=== PATIENT | male | born 1960 | race Caucasian/White ===

== ENCOUNTER 2025-07-28 12:05 | Emergency (ER) | payer OTHER ==
--- NOTE | 2025-07-28 13:17 | RAD REPORT ---
EXAMINATION: ONE VIEW CHEST XR CLINICAL INDICATION: Male, 65 years old.,CHEST PAIN TECHNIQUE: Frontal chest projection is submitted. Examination is limited by patient positioning and t echnique. COMPARISON: 01/06/2021 FINDINGS: The lungs are well inflated and clear. No pneumothorax or sizable effusion. The heart is normal in s ize. Mediastinal contours are unremarkable. IMPRESSION: No acute intrathoracic abnormalities.
--- NOTE | 2025-07-28 13:33 | RAD REPORT ---
EXAM: CT Head Brain Wo Cont HISTORY: DIZZINESS COMPARISON: None TECHNIQUE: Multiple contiguous axial images were obtained for a CT of the brain without contrast. Sag ittal and coronal reformats were performed. One or more of the following dose reduction techniques were used: Automated exposure control, adjus tment of the mA and kV according to patient size, and iterative reconstruction. Unless otherwise specified, incidental findings do not require dedicated imaging follow-up. FINDINGS: No evidence of hydrocephalus, intracranial hemorrhage, or extra-axial fluid collection. The brain is normal in morphology. The calvarium is intact. The visualized paranasal sinuses and mastoid air cells are essentially clear . IMPRESSION: No evidence of acute intracranial abnormality.
--- NOTE | 2025-07-28 13:36 | RAD REPORT ---
EXAMINATION: CTA HEAD CLINICAL INDICATION: Male, 65 years old. DIZZINESS TECHNIQUE: Axial CT images were obtained through the head after intravenous contrast utilizing angiog raphic protocol with 3D post-processing (maximum intensity projection images, volume rendered images and/or shaded surface rendered images). One or more of the following dose reduction technique s were used: Automated exposure control, adjustment of the mA and/or kV according to patient size, and/or iterative reconstruction. Unless otherwise specified, incidental findings do not require dedic ated imaging follow-up. COMPARISON: No prior exam. FINDINGS: ICA: The petrous, cavernous, and supraclinoid segments of the bilateral internal carotid arteries are normal. GREG: Anterior cerebral arteries are normal bilaterally. The anterior communicating artery is patent. MCA: Middle cerebral arteries are normal bilaterally. MICROWAVE TECHNICIAN: Posterior cerebral arteries are normal bilaterally. Vertebrobasilar: The vertebral arteries are patent. The basilar artery is normal in appearance. 3D images confirm these findings. IMPRESSION: No evidence of large vessel occlusion or hemodynamically significant stenosis.
[2025-07-28 13:39] LABS: Absolute Lymphocytes (CBC) 1.1 K/uL (0.7-4.9); Hematocrit 45.8 % (39.6-49.0); Hemoglobin 15.5 g/dL (13.6-17.9); MCH 29.8 pg (27.0-35.0); MCHC 33.8 g/dL (32.0-36.0); MCV 88.1 fL (80-100); MPV 10.4 fL (7.6-11.3); Nucleated RBC Absolute Count 0.0 (0-0); Nucleated Red Blood Cells % 0.1 % (0-0); RBC Red Blood Cell Count 5.20 M/uL (4.33-5.43); White Blood Count 14.60 thou/uL (4.3-10.9)
--- NOTE | 2025-07-28 13:40 | RAD REPORT ---
EXAMINATION: CT Neck Angio CLINICAL INDICATION: Male, 65 years old. [facility] MAIN PAIN Bed Name: [id number] TECHNIQUE: Axial CT images were obtained from the aortic arch to the skull base after intravenous con trast utilizing angiographic protocol. Multiplanar reformats, as well as 3D post-processing (maximum intensity projection images, volume rendered images and/or shaded surface rendered images) w ere generated and reviewed. One or more of the following dose reduction techniques were used: Automated exposure control, adjustment of the mA and/or kV according to patient size, and/or iterativ e reconstruction. Unless otherwise specified, incidental findings do not require dedicated imaging follow-up. COMPARISON: No prior exam. FINDINGS: AORTA: The imaged aortic arch is normal. Normal three-vessel configuration of the arch. CCA: No artifact The common carotid arteries are patent and normal in caliber. ICA/ECA: Bilateral internal and external carotid arteries are patent, with mild luminal irregularity along the proximal ICAs bilaterally without significant stenosis. VERTEBRAL: Moderate to severe narrowing at the vertebral artery origins bilaterally. Vessels are othe rwise patent. Vertebral arteries are codominant. SOFT TISSUE: No significant neck soft tissue abnormalities. The visualized lung apices are clear. 3D images confirm these findings. IMPRESSION: No significant flow abnormality of the cervical carotid arteries is identified. Mild luminal irregula rity along the proximal ICAs bilaterally could reflect noncalcified atherosclerotic plaque. Moderate to severe bilateral vertebral artery origin stenosis. NASCET criteria used to quantify ICA stenosis, with the following grading scheme: Mild 0-49% stenosis Moderate 50-69% stenosis Severe 70-99% stenosis Reference: [place] Symptomatic Carotid Endarterectomy Trial Collaborators; Celeste MERIDA, Irma ALANIZ, Kristen RB, et al. Beneficial effect of carotid endarterectomy in symptomatic patients with high-grade carotid stenosis. N Engl J Med. 1990Jun 05;325(7):445-53.
[2025-07-28] MEDS ORDERED: CALCIUM GLUCONATE 1 GM IVPB 2 GM/100 ML BAG IV ONE (13:42)
[2025-07-28 14:05] LABS: ALT/SGPT 27 U/L (16-61); AST/SGOT 17 U/L (15-37); Albumin 4.4 g/dL (3.4-5.0); Albumin/Globulin Ratio 1.0 (1.1-1.8); Alkaline Phosphatase 90 U/L (45-117); Anion Gap 7.2 mEq/L (5.0-15.0); BUN Blood Urea Nitrogen 13 mg/dL (7-18); Globulin 4.2 g/dL (2.3-3.5); Glucose Level 94 mg/dL (74-106); Magnesium 2.2 mg/dL (1.6-2.4); NT PRO-BNP 163 pg/mL (<125); Potassium 4.2 mEq/L (3.5-5.1); Troponin High Sensitivity 4.5 pg/mL (<58.9)
[2025-07-28 14:06] LABS: Bilirubin Indirect, Calculated 0.3 mg/dL (0.2-0.8)
[2025-07-28 14:13] LABS: Blood Morphology Comment NOT SEEN (NOT SEEN); White Blood Cell Scan OK (OK)
--- NOTE | 2025-07-28 16:47 | ER ---
Nurse's Notes [facility] Name: Matthieu Ramesh Age: 65 yrs Sex: Male : 1960 Arrival Date: 07/28/2025 Time: 12:05 Bed 8 Private MD: Diagnosis: Dizziness and giddiness Presentation: 07/28 12:19 Chief complaint: Patient states: a year ago patient started having syncopal episodes me1 and fell off a ladder last June. Last patient had a 3 minute episode of blurred vision and dizziness. He had another episode on Sunday and then had another one yesterday that only lasted about 30 seconds. States he has difficulty concentrating during these episodes. Coronavirus screen: At this time, the client does not indicate any symptoms associated with coronavirus-19. Ebola Screen: No symptoms or risks identified at this time. Initial Sepsis Screen: Does the patient meet any 2 criteria? No. Patient's initial sepsis screen is negative. Does the patient have a suspected source of infection? No. Patient's initial sepsis screen is negative. Risk Assessment: Do you want to hurt yourself or someone else? Patient reports no desire to harm self or others. Onset of symptoms was July 24, 2025. 12:19 Method Of Arrival: Ambulatory [facility] [place] 12:19 Acuity: SHANELLE 3 me1 Triage Assessment: 12:30 General: Appears in no apparent distress. Behavior is calm, cooperative, appropriate bp for age. Pain: Denies pain. EENT: No deficits noted. Neuro: No deficits noted. Cardiovascular: No deficits noted. Respiratory: No deficits noted. GI: No signs and/or symptoms were reported involving the gastrointestinal system. : No signs and/or symptoms were reported regarding the genitourinary system. Derm: No deficits noted. Musculoskeletal: No deficits noted. Historical: - Allergies: 12:26 No Known Allergies; me1 - Home Meds: 12:26 None [Active]; me1 - PMHx: 12:26 None; me1 - PSHx: 12:26 None; me1 - Immunization history:: Adult Immunizations up to date. - Infectious Disease History:: Denies. - Social history:: Smoking status: Patient reports the use of cigarette tobacco products, smokes one pack cigarettes per day. Screenin:25 [facility] ED Fall Risk Assessment (Adult) History of falling in the last 3 months, bp including since admission No falls in past 3 months (0 pts) Confusion or Disorientation No (0 pts) Intoxicated or Sedated No (0 pts) Impaired Gait No (0 pts) Mobility Assist Device Used No (0 pt) Altered Elimination No (0 pt) Score/Fall Risk Level 0 - 2 = Low Risk Oriented to surroundings. Abuse screen: Denies threats or abuse. Denies injuries from another. Nutritional screening: No deficits noted. Tuberculosis screening: No symptoms or risk factors identified. Vital Signs: 12:19 BP 139 / 81; Pulse 54; Resp 17; Temp 98.4; Pulse Ox 100% ; Weight 62.6 kg; Height 5 ft. me1 9 in. ; Pain 0/10; 17:23 BP 141 / 77; Pulse 50; Resp 17; Pulse Ox 99% ; bp 12:19 Body Mass Index 20.38 (62.60 kg, 175.26 cm) me1 12:19 Pain Scale: Adult ms1 ED Course: 12:08 Patient arrived in ED. al6 12:17 Corrine Sun FNP-C is PHCP. kb 12:17 Farhad Rey MD is Attending Physician. kb 12:26 Triage completed. me1 12:26 Arm band placed on Patient placed in waiting room. me1 13:01 CT completed. Patient tolerated procedure well. Note: 20 g to rt ac, labs collected and sj sent by luiza in ct. Patient moved to CT via wheelchair. Patient moved back from CT. 13:05 CT Head Brain wo Cont In Process Unspecified. EDMS 13:05 CT Head Angio In Process Unspecified. EDMS 13:05 CT Neck Angio In Process Unspecified. EDMS 13:13 XRAY Chest (1 view) In Process Unspecified. EDMS 13:32 EKG done, by ED staff, reviewed by Corrine BALBUENA. me1 13:33 Adal Manrique, RN is Primary Nurse. bp 17:25 Patient has correct armband on for positive identification. bp 17:25 No provider procedures requiring assistance completed. IV discontinued, intact, bp bleeding controlled, No redness/swelling at site. Pressure dressing applied. Administered Medications: 13:49 Drug: Calcium Gluconate IVPB 2 grams IVPB once over 60 mins; (mix in NS 100 mL) Route: bp IVPB; Infused Over: 60 mins; Site: left antecubital; 17:26 Follow up: IV Status: Completed infusion bp Outcome: 16:47 Discharge ordered by MD. hanson 17:25 Discharged to home ambulatory, with family, bp 17:25 Condition: stable 17:25 Discharge instructions given to patient, Instructed on discharge instructions, follow up and referral plans. Demonstrated understanding of instructions, follow-up care, 17:26 Patient left the ED. bp Signatures: Dispatcher [employer] EDCorrine Astorga, ADRIANA-C ADRIANA-Luiza Fleming Brian, RN RN bp Bailey Everett RN RN me1 Inna Gaines al6
--- NOTE | 2025-07-28 16:47 | EDPHYS ---
Physician Documentation [facility] Name: Matthieu Ramesh Age: 65 yrs Sex: Male : 1960 Arrival Date: 07/28/2025 Time: 12:05 Bed 8 Private MD: ED Physician Farhad Rey HPI: 07/28 17:25 This 65 yrs old Male presents to ER via Ambulatory with complaints of Abnormal Lab kb Results. 17:25 Patient is a 65-year-old male who presents for intermittent dizziness. Patient states kb that he fell off of a ladder June 2024 and has been having intermittent dizziness since then. States he was driving and had an episode of dizziness and "glassed over" vision which which was new for him. States that episode lasted about 3 minutes and resolved. Patient states he made an appointment with PCP, earliest he could get into today and they recommended he come to the ER for evaluation.. Historical: - Allergies: 12:26 No Known Allergies; me1 - Home Meds: 12:26 None [Active]; me1 - PMHx: 12:26 None; me1 - PSHx: 12:26 None; me1 - Immunization history:: Adult Immunizations up to date. - Infectious Disease History:: Denies. - Social history:: Smoking status: Patient reports the use of cigarette tobacco products, smokes one pack cigarettes per day. ROS: 12:44 Constitutional: As per HPI kb Exam: 12:44 Constitutional: This is a well developed, well nourished patient who is awake, alert, kb and in no acute distress. Head/Face: Normocephalic, atraumatic. ENT: Moist Mucous membranes Cardiovascular: Bradycardic rate Respiratory: Respirations even and unlabored. No increased work of breathing. Talking in full sentences Skin: Warm, dry with normal turgor. Normal color. MS/ Extremity: Pulses equal, no cyanosis. Neurovascular intact. Full, normal range of motion. Neuro: Awake and alert, GCS 15, oriented to person, place, time, and situation. Vital Signs: 12:19 BP 139 / 81; Pulse 54; Resp 17; Temp 98.4; Pulse Ox 100% ; Weight 62.6 kg; Height 5 ft. me1 9 in. ; Pain 0/10; 17:23 BP 141 / 77; Pulse 50; Resp 17; Pulse Ox 99% ; bp 12:19 Body Mass Index 20.38 (62.60 kg, 175.26 cm) me1 12:19 Pain Scale: Adult me1 MDM: 12:18 Medical Screening Exam initiated kb 16:52 Differential diagnosis: cva, vertigo, acute mi, arrhythmia. Data reviewed: vital signs, kb nurses notes. Consideration of Admission/Observation Escalation of care including admission/observation considered. admission considered but pt is asymptomatic since arrival, serial troponin wnl.. Historians other than the Patient: Spouse/Significant Other: spouse. Counseling: I had a detailed discussion with the patient and/or guardian regarding the historical points, exam findings, and any diagnostic results supporting the discharge/admit diagnosis, lab results, radiology results, the need for outpatient follow up, a life coach, a neurologist, to return to the emergency department if symptoms worsen or persist or if there are any questions or concerns that arise at home. 07/28 12:28 Order name: Basic Metabolic Panel; Complete Time: 14:08 kb 07/28 12:28 Order name: CBC with Diff; Complete Time: 14:21 kb 07/28 12:28 Order name: LFT's; Complete Time: 14:08 kb 07/28 12:28 Order name: Magnesium; Complete Time: 14:08 kb 07/28 12:28 Order name: NT PRO-BNP; Complete Time: 14:08 kb 07/28 12:28 Order name: Troponin HS; Complete Time: 14:08 kb 07/28 13:55 Order name: CBC Smear Scan; Complete Time: 14:21 EDMS 07/28 14:52 Order name: CREATININE WHOLE BLOOD; Complete Time: 14:52 EDMS 07/28 15:00 Order name: Troponin High Sensitivity; Complete Time: 16:45 kb 07/28 12:28 Order name: XRAY Chest (1 view); Complete Time: 13:19 kb 07/28 12:28 Order name: CT Head Brain wo Cont; Complete Time: 13:33 kb 07/28 12:28 Order name: CT Head Angio; Complete Time: 13:37 kb 07/28 12:28 Order name: CT Neck Angio; Complete Time: 13:43 kb 07/28 12:28 Order name: Cardiac monitoring; Complete Time: 13:50 kb 07/28 12:28 Order name: EKG - Nurse/Tech; Complete Time: 13:33 kb 07/28 12:28 Order name: IV Saline Lock; Complete Time: 13:50 kb 07/28 12:28 Order name: Labs collected and sent; Complete Time: 13:50 kb 07/28 12:28 Order name: O2 Per Protocol; Complete Time: 13:50 kb 07/28 12:28 Order name: O2 Sat Monitoring; Complete Time: 13:50 kb 07/28 15:00 Order name: Misc. Order: please draw repeat troponin at 1500; Complete Time: 15:28 kb EC:44 Rate is 53 beats/min. Rhythm is regular. QRS [place] is Normal. NH interval is normal at kb 154 msec. QRS interval is normal at 88 msec. QT interval is normal at 380 msec. Administered Medications: 13:49 Drug: Calcium Gluconate IVPB 2 grams IVPB once over 60 mins; (mix in NS 100 mL) Route: bp IVPB; Infused Over: 60 mins; Site: left antecubital; 17:26 Follow up: IV Status: Completed infusion bp Disposition Summary: 07/28/25 16:47 Discharge Ordered Notes: Location: Home kb Condition: Stable kb Diagnosis - Dizziness and giddiness kb Followup: kb - With: Emergency Department - When: As needed - Reason: Worsening of condition Followup: kb - With: Private Physician - When: 2 - 3 days - Reason: Recheck today's complaints, Continuance of care, Re-evaluation by your physician Discharge Instructions: - Discharge Summary Sheet kb - Vertigo, [id number] kb - Dizziness, [id number] kb Forms: - Medication Reconciliation Form kb - Antibiotic Education kb - Prescription Opioid Use kb - Patient Portal Instructions kb - Leadership Thank You Letter kb Signatures: Dispatcher [employer] EDMS Corrine Sun, PLANE CAPTAIN-C PLANE CAPTAIN-Adal Chew, RN RN bp Bailey Everett, RN RN me1 Corrections: (The following items were deleted from the chart) 12:29 12:29 BASIC METABOLIC PANEL+C.LAB.BRZ ordered. EDMS EDMS 12:29 12:29 CBC+H.LAB.BRZ ordered. EDMS EDMS 12:29 12:29 HEPATIC FUNCTION+C.LAB.BRZ ordered. EDMS EDMS 12:29 12:29 MAGNESIUM+C.LAB.BRZ ordered. EDMS EDMS 12: PROBNP+C.LAB.BRZ ordered. EDMS EDMS 12: Troponin High Sensitivity+C.LAB.BRZ ordered. EDMS EDMS 12: Head Brain Wo Cont+CT.RAD.BRZ ordered. EDMS EDMS 12: Head Angio+CT.RAD.BRZ ordered. EDMS EDMS 12: Neck Angio+CT.RAD.BRZ ordered. EDMS EDMS
[2025-07-28 17:48] VITALS: TEMP 98.4
[2025-07-28 17:49] VITALS: BP 141/77; O2SAT 99
== END 2025-07-28 17:26 | disposition home or self-care (01) ==
LOC: ER 12:05
DX: R42 Dizziness and giddiness (principal); F17.210 Nicotine dependence, cigarettes, uncomplicated
CPT/HCPCS: 96365; 93005; 85025; 80048; 36415; 83735; 82565; 80076; 84484 ×2; 83880; 70450; 70496; 70498; 71045; 99284; 96366; Q9967; J0612